=== PATIENT | male | born 1995 | race Asian ===

== ENCOUNTER 2020-07-16 20:07 | Emergency (ER) | payer OTHER ==
[~2020-07-16] VITALS: Ht 165.1 cm; Wt 63.5 kg
[2020-07-16 20:10] VITALS: BP 115/64; Ht 165.1 cm; Wt 63.5 kg
== END 2020-07-16 20:45 | disposition home or self-care (01) ==
LOC: ED 20:07
DX: U07.1 COVID-19 (principal); R42 Dizziness and giddiness